=== PATIENT | female | born 1945 | race Caucasian/White ===

== ENCOUNTER 2016-11-25 17:41 | Inpatient (IN) | payer OTHER, MEDICAID ==
[~2016-11-25] VITALS: Ht 160 cm; Wt 74.8 kg
[2016-11-25] MEDS ORDERED: FOSAMAX70 M1 PO (19:41)
[2016-11-25] MEDS ORDERED: ANTI ANXIETY MED (19:42)
[2016-11-25 20:43] VITALS: BP 124/76
[2016-11-25 21:20] VITALS: BP 124/76
[2016-11-25 21:34] LABS: MAGNESIUM 1.9 mg/dL (1.8-2.4); PHOSPHOROUS 3.4 mg/dL (2.5-4.9)
[2016-11-25 21:41] LABS: CHOLESTEROL/HDL RATIO 2.2
[2016-11-25 21:46] LABS: FREE T4 1.21 ng/dL (0.76-1.46); FREE THYROXINE INDEX 3.6 ug/dL (1.4-4.5); T4(THYROXINE) 10.1 ug/dL (4.7-13.3)
[2016-11-25 21:54] LABS: T3 TOTAL 1.55 ng/mL
[2016-11-25 22:26] LABS: BASOPHIL % 0.6 % (0-2); PLATELET COUNT 231 x10^3mcL (130-400); RED CELL DISTRIBUTION WIDTH 13.7 % (11.5-14.5)
[2016-11-25 22:32] LABS: ALBUMIN 3.8 g/dL (3.4-5.0); ALKALINE PHOSPHATASE 60 U/L (46-116); ALT/SGPT 32 U/L (14-59); AST/SGOT 25 U/L (15-37); BILIRUBIN TOTAL 0.3 mg/dL (0.20-1.00); CALCIUM 9.1 mg/dL (8.5-10.1); CARBON DIOXIDE 27.3 mmol/L (21-32); CHLORIDE SERUM 105 mmol/L (98-107); CREATININE SERUM 0.8 mg/dL (0.6-1.0); GFR1 > 60 mL/min; GLUCOSE SERUM 101 mg/dL (74-106); POTASSIUM SERUM 4.2 mmol/L (3.5-5.1); SODIUM SERUM 141 mmol/L (136-145); TOTAL PROTEIN, SERUM 7.1 g/dL (6.4-8.2)
[2016-11-26 06:03] LABS: microscopic required? NO
[2016-11-26 06:09] VITALS: BP 119/68
[2016-11-26 06:23] LABS: CALCIUM 8.5 mg/dL (8.5-10.1); CARBON DIOXIDE 26.4 mmol/L (21-32); CHLORIDE SERUM 108 mmol/L (98-107); CREATININE SERUM 0.8 mg/dL (0.6-1.0); GFR1 > 60 mL/min; GLUCOSE SERUM 83 mg/dL (74-106); SODIUM SERUM 141 mmol/L (136-145)
[2016-11-26 06:36] LABS: BASOPHIL % 0.4 % (0-2); PLATELET COUNT 201 x10^3mcL (130-400); RED CELL DISTRIBUTION WIDTH 13.9 % (11.5-14.5)
[2016-11-26 08:19] LABS: UA SPECIFIC GRAVITY 1.015 (1.005-1.035); urine erythrocyte NEGATIVE (NEGATIVE)
[2016-11-26 08:28] LABS: AMPHETAMINE QUAL UR NONE DETECTED (NEG <=1000)
[2016-11-26 10:00] VITALS: BP 105/70
[2016-11-26 22:09] VITALS: BP 96/56
[2016-11-27 06:07] VITALS: BP 92/56
[2016-11-27 06:36] LABS: BASOPHIL % 0.1 % (0-2); PLATELET COUNT 187 x10^3mcL (130-400); RED CELL DISTRIBUTION WIDTH 13.1 % (11.5-14.5)
[2016-11-27 06:53] LABS: CALCIUM 7.6 mg/dL (8.5-10.1); CARBON DIOXIDE 22.3 mmol/L (21-32); CHLORIDE SERUM 103 mmol/L (98-107); CREATININE SERUM 0.8 mg/dL (0.6-1.0); GFR1 > 60 mL/min; GLUCOSE SERUM 109 mg/dL (74-106); POTASSIUM SERUM 4.2 mmol/L (3.5-5.1); SODIUM SERUM 135 mmol/L (136-145)
[2016-11-27 10:00] VITALS: BP 88/51
[2016-11-27 14:00] VITALS: BP 115/59; BP 88/49
[2016-11-27 15:00] VITALS: BP 115/59
[2016-11-27 17:59] VITALS: BP 114/66
[2016-11-27 22:04] VITALS: BP 119/67
[2016-11-28 06:31] VITALS: BP 127/74
[2016-11-28 07:11] LABS: BASOPHIL % 0.4 % (0-2); PLATELET COUNT 179 x10^3mcL (130-400); RED CELL DISTRIBUTION WIDTH 13.6 % (11.5-14.5)
[2016-11-28 07:30] LABS: CARBON DIOXIDE 22.9 mmol/L (21-32); CHLORIDE SERUM 108 mmol/L (98-107); CREATININE SERUM 0.6 mg/dL (0.6-1.0); GFR1 > 60 mL/min; GLUCOSE SERUM 98 mg/dL (74-106); MAGNESIUM 1.9 mg/dL (1.8-2.4); PHOSPHOROUS 1.8 mg/dL (2.5-4.9); POTASSIUM SERUM 3.4 mmol/L (3.5-5.1); SODIUM SERUM 141 mmol/L (136-145)
[2016-11-28 08:50] VITALS: BP 113/65
[2016-11-28 10:20] VITALS: BP 126/71
[2016-11-28 13:53] VITALS: BP 113/65
[2016-11-28] MEDS ORDERED: NOR10T PO (16:50)
[2016-11-28] MEDS ORDERED: OSCD PO (16:50)
[2016-11-28] MEDS ORDERED: HEP5I SC (16:52)
[2016-11-28] MEDS ORDERED: CITALOPRAM HYDR20 M1 PO (16:58)
[2016-11-28 18:20] VITALS: BP 112/64
== END 2016-11-28 18:30 | DRG 493 ==
LOC: ED 17:41 → DU 19:29 → MU 19:29 → DU 21:14 → MU 11-27 19:54
PROVIDERS: Neuromusculoskeletal Medicine, Sports Medicine; ADMIT Family Medicine
PROC: 0QSG04Z Reposition Right Tibia with Internal Fixation Device, Open Approach (ICD-10-PCS; 2016-11-26)
PROC: 0QSJ04Z Reposition Right Fibula with Internal Fixation Device, Open Approach (ICD-10-PCS; principal; 2016-11-26 13:00)
DX: S82.851A Displaced trimalleolar fracture of right lower leg, initial encounter for closed fracture (principal); E87.1 Hypo-osmolality and hyponatremia; I16.0 Hypertensive urgency; E83.51 Hypocalcemia; M81.0 Age-related osteoporosis without current pathological fracture; K58.9 Irritable bowel syndrome, unspecified; D64.9 Anemia, unspecified; E03.9 Hypothyroidism, unspecified; F41.9 Anxiety disorder, unspecified; Z68.28 Body mass index [BMI] 28.0-28.9, adult; W01.0XXA Fall on same level from slipping, tripping and stumbling without subsequent striking against object, initial encounter; Y93.E5 Activity, floor mopping and cleaning; Y92.019 Unspecified place in single-family (private) house as the place of occurrence of the external cause
CPT/HCPCS: 76001; 82962; 83880; 84439; 94150; 97110-GP; 97116-GP; 97530-GP; C1713; J0690; J1644; J1885; J2175; J2250; J2405; J2704; J3010; J3490; J7030; J7042; J7070; Q0092